=== PATIENT | male | born 1970 | race Caucasian/White ===

== ENCOUNTER 2017-06-19 15:04 | Emergency (ER) | payer BC ==
[~2017-06-19] VITALS: Ht 167.6 cm; Wt 85.5 kg
[2017-06-19 15:09] VITALS: TEMP 98.4
[2017-06-19] MEDS ORDERED: NORCO 325 MG-101 TAB PO (15:28)
[2017-06-19] MEDS ORDERED: CATAPRES 0.1MG0.1 MG PO (15:33)
[2017-06-19] MEDS ORDERED: KLONOPIN2 MG PO (15:34)
[2017-06-19] MEDS ORDERED: VIVANCE (15:34)
[2017-06-19] MEDS ORDERED: ZORVOLEX18 MG PO (15:35)
[2017-06-19] MEDS ORDERED: PREDNISONE 2.52.5 MG PO (15:35)
[2017-06-19 16:21] LABS: BASO % 0.1 % (0.0-2.0); GRAN # 9.7 (1.4-6.5); GRAN % 87.8 % (42.2-75.2); HEMATOCRIT 42.6 % (42.0-52.0); HEMOGLOBIN 14.7 g/dl (13.5-18.0); LYMPH # 0.8 (1.2-3.4); LYMPH % 7.2 % (20.0-51.0); MEAN CELL VOLUME 91 fl (80.0-100.0); MEAN CORPUSCULAR HEMOGLOBIN 32 pg (27.0-31.0); MEAN CORPUSCULAR HGB CONC 35 g/dl (33.0-37.0); MEAN PLATELET VOLUME 13.2 fl (7.4-10.4); MONO # 0.5 (0.1-0.6); MONO % 4.4 % (1.7-9.3); PLATELET COUNT 108 K/mm3 (130-400); RED BLOOD COUNT 4.66 M/mm3 (4.20-5.60); REDCELL DISTRIBUTION WIDTH-CV 11.9 % (11.5-14.5); WHITE BLOOD COUNT 11.1 K/mm3 (4.8-10.8)
[2017-06-19 16:45] LABS: ADJUSTED CALCIUM 9.1 mg/dL (8.4-10.2); ALBUMIN 4.2 gm/dL (3.5-5.0); BILIRUBIN,TOTAL 0.7 mg/dL (0.0-1.0); CALCIUM 9.3 mg/dL (8.4-10.2); CREATININE, serum 1.24 mg/dL (0.66-1.25); POTASSIUM 4.2 mmol/L (3.4-5.0); TOTAL PROTEIN 7.1 gm/dL (6.4-8.2)
[2017-06-19 18:30] VITALS: BP 11/67; PULSE 70
== END 2017-06-19 18:30 | disposition home or self-care (01) ==
LOC: COL.ER 15:04
PROVIDERS: Emergency Medicine
DX: S16.1XXA Strain of muscle, fascia and tendon at neck level, initial encounter (principal); W18.2XXA Fall in (into) shower or empty bathtub, initial encounter; Y92.002 Bathroom of unspecified non-institutional (private) residence as the place of occurrence of the external cause; F07.81 Postconcussional syndrome; G44.309 Post-traumatic headache, unspecified, not intractable; G58.9 Mononeuropathy, unspecified
CPT/HCPCS: J1170; J1885; J7030

== ENCOUNTER 2017-08-06 08:24 | Emergency (ER) | payer BC ==
[~2017-08-06] VITALS: Ht 165.1 cm; Wt 92.7 kg
[~2017-08-06 08:24] MED LIST: CATAPRES 0.1MG0.1 MG PO; KLONOPIN2 MG PO; NORCO 325 MG-101 TAB PO; PREDNISONE 2.52.5 MG PO; VIVANCE; ZORVOLEX18 MG PO
[2017-08-06 08:27] VITALS: TEMP 98
[2017-08-06] MEDS ORDERED: VYVANSE50 MG PO (08:30)
[2017-08-06] MEDS ORDERED: SYNTHROID0.075 MG/T PO (08:30)
[2017-08-06] MEDS ORDERED: AMITRIPTYLINE H25 M1 PO (09:17)
[2017-08-06 13:49] VITALS: BP 146/95; PULSE 87
== END 2017-08-06 13:49 | disposition home or self-care (01) ==
LOC: COL.ER 08:24
DX: F07.81 Postconcussional syndrome (principal); R51 Headache; Z87.820 Personal history of traumatic brain injury
CPT/HCPCS: A9585; J1200; J1630; J1885; J2930; J7030